=== PATIENT | male | born 1980 | race Caucasian/White ===

== ENCOUNTER 2016-05-31 08:46 | Emergency (ER) | payer MEDICAID ==
[~2016-05-31] VITALS: Ht 182.9 cm; Wt 70.4 kg
[~2016-05-31 08:46] MED LIST: BUPR100T71; OMEP20TA44
[2016-05-31 09:02] VITALS: BP 140/83
== END 2016-05-31 09:59 | disposition home or self-care (01) ==
LOC: ER 08:46
DX: H10.33 Unspecified acute conjunctivitis, bilateral (principal); Z88.6 Allergy status to analgesic agent; Z79.899 Other long term (current) drug therapy; F17.210 Nicotine dependence, cigarettes, uncomplicated; F12.10 Cannabis abuse, uncomplicated

== ENCOUNTER 2016-06-01 11:04 | Emergency (ER) | payer MEDICAID ==
[~2016-06-01] VITALS: Ht 182.9 cm; Wt 70.3 kg
[2016-06-01 11:19] VITALS: BP 146/86
== END 2016-06-01 11:46 | disposition home or self-care (01) ==
LOC: ER 11:07
DX: H10.31 Unspecified acute conjunctivitis, right eye (principal); F17.210 Nicotine dependence, cigarettes, uncomplicated; Z88.6 Allergy status to analgesic agent; F12.10 Cannabis abuse, uncomplicated

== ENCOUNTER 2016-06-07 10:50 | Emergency (ER) | payer MEDICAID ==
[~2016-06-07] VITALS: Ht 182.9 cm; Wt 70.3 kg
[2016-06-07 11:55] VITALS: BP 145/78
[2016-06-07] MEDS ORDERED: LIDOCAINE 1% HCL (LOCAL ANESTH.) INJ 20ML MDV IJ ONE (12:30)
== END 2016-06-07 12:32 | disposition home or self-care (01) ==
LOC: ER 10:50
DX: S61.012A Laceration without foreign body of left thumb without damage to nail, initial encounter (principal); F17.210 Nicotine dependence, cigarettes, uncomplicated; F12.10 Cannabis abuse, uncomplicated; Z88.6 Allergy status to analgesic agent; X58.XXXA Exposure to other specified factors, initial encounter; Y93.89 Activity, other specified; Y99.8 Other external cause status; Y92.89 Other specified places as the place of occurrence of the external cause
CPT/HCPCS: 12001; 99283; J2001

== ENCOUNTER 2018-05-28 13:53 | Emergency (ER) | payer MEDICAID ==
[~2018-05-28] VITALS: Ht 182.9 cm; Wt 74.8 kg
[2018-05-28 14:23] VITALS: BP 139/82
== END 2018-05-28 15:43 | disposition home or self-care (01) ==
LOC: ER 13:56
DX: J20.9 Acute bronchitis, unspecified (principal); F17.210 Nicotine dependence, cigarettes, uncomplicated; F12.10 Cannabis abuse, uncomplicated
CPT/HCPCS: 71046; 81002

== ENCOUNTER 2019-07-01 00:20 | Emergency (ER) | payer MEDICAID ==
[~2019-07-01] VITALS: Ht 182.9 cm; Wt 72.6 kg
[2019-07-01 01:28] LABS: Basophils # (auto) 0.1 10 ^3/uL (0-0.2); Basophils % (auto) 0.8 % (0.0-2.0); Eosinophils # (auto) 0.1 10 ^3/uL (0-0.8); Eosinophils % (auto) 0.9 % (0.0-7.0); Hematocrit 44.4 % (41.0-53.0); Hemoglobin 15.6 g/dL (13.5-17.5); Lymphocytes # (auto) 1.4 10 ^3/uL (0.4-5.4); Lymphocytes % (auto) 15.1 % (10.0-50.0); Mean Corpuscular Hemoglobin 32.4 pg (28.0-32.0); Mean Corpuscular Hgb Conc. 35.1 g/dL (32.0-36.0); Mean Corpuscular Volume 92.3 fL (80.0-100.0); Neutrophils # (auto) 6.7 10 ^3/uL (1.6-8.6); Neutrophils % (auto) 72.2 % (37.0-80.0); Platelet Count (auto) 336 10^3/uL (140-450); Red Blood Cells 4.82 10^6/uL (4.5-5.90); Red Cell Distribution Width 13.3 % (11.8-14.3); White Blood Cell 9.3 10^3/uL (4.4-10.8)
[2019-07-01] MEDS ORDERED: SODIUM CHLORIDE 0.9% 1,000 ML IV ONE (01:30)
[2019-07-01] MEDS ORDERED: KETOROLAC TROMETH 15 mg/ml 1ML VL IV ONE (01:30)
[2019-07-01 01:43] LABS: Urine Bacteria NONE SEEN /hpf (None Seen); Urine Blood Negative /uL (Negative); Urine Hyaline Cast FEW /lpf (0 - 2); Urine Mucus FEW (None Seen); Urine Specific Gravity 1.038 (1.001-1.035); Urine WBC 3 /hpf (0 - 3)
[2019-07-01 01:45] LABS: Calcium 9.1 mg/dL (8.5-10.1); Potassium 3.8 mmol/L (3.5-5.1)
[2019-07-01 01:48] LABS: Total Protein 7.6 g/dL (6.4-8.2)
[2019-07-01] MEDS ORDERED: KETOROLAC TROMETH 60MG/2ML VIAL IM ONE (02:00)
[2019-07-01 02:25] VITALS: BP 109/71
== END 2019-07-01 02:55 | disposition home or self-care (01) ==
LOC: ER 00:25
DX: K59.00 Constipation, unspecified (principal); F17.210 Nicotine dependence, cigarettes, uncomplicated; Z87.442 Personal history of urinary calculi; Z88.6 Allergy status to analgesic agent
CPT/HCPCS: 36415; 74176; 80053; 81001; 83690; 85025; 96361; 96374; 99284; J1885

== ENCOUNTER 2019-07-23 06:03 | Emergency (ER) | payer OTHER, MEDICAID ==
[~2019-07-23] VITALS: Ht 182.9 cm; Wt 77.1 kg
[2019-07-23] MEDS ORDERED: SODIUM CHLORIDE 0.9% 1,000 ML IV ONE ×2 (07:00)
[2019-07-23 07:15] LABS: Basophils # (auto) 0 10 ^3/uL (0-0.2); Basophils % (auto) 0.3 % (0.0-2.0); Eosinophils # (auto) 0.1 10 ^3/uL (0-0.8); Eosinophils % (auto) 0.4 % (0.0-7.0); Hematocrit 44.6 % (41.0-53.0); Hemoglobin 15.1 g/dL (13.5-17.5); Lymphocytes # (auto) 0.6 10 ^3/uL (0.4-5.4); Lymphocytes % (auto) 4.9 % (10.0-50.0); Mean Corpuscular Hemoglobin 31.7 pg (28.0-32.0); Mean Corpuscular Hgb Conc. 33.9 g/dL (32.0-36.0); Mean Corpuscular Volume 93.4 fL (80.0-100.0); Monocytes # (auto) 0.9 10 ^3/uL (0-1.3); Monocytes % (auto) 7.3 % (0.0-12.0); Neutrophils # (auto) 11.3 10 ^3/uL (1.6-8.6); Neutrophils % (auto) 87.1 % (37.0-80.0); Platelet Count (auto) 329 10^3/uL (140-450); Red Blood Cells 4.77 10^6/uL (4.5-5.90); Red Cell Distribution Width 13.3 % (11.8-14.3)
[2019-07-23 07:33] LABS: INR 1.03 (0.9-1.15); Partial Thromboplastin Time 26.8 sec (23.64-32.05)
[2019-07-23 07:44] LABS: Alanine Aminotransferase 39 U/L (16-61); Albumin 3.9 g/dL (3.4-5.0); Anion Gap 8 (5-15); Blood Urea Nitrogen 22 mg/dL (7-18); Calcium 8.6 mg/dL (8.5-10.1); Carbon Dioxide 22 mmol/L (21-32); Chloride 109 mmol/L (98-107); Glucose 108 mg/dL (74-106); Potassium 3.9 mmol/L (3.5-5.1); Sodium 139 mmol/L (136-145)
[2019-07-23 07:49] LABS: Alkaline Phosphatase 84 U/L (45-117); Aspartate Aminotransferase 27 U/L (15-37); BUN/Creatinine Ratio 23.2; Bilirubin, Total 0.6 mg/dL (0.2-1.0); GFR African American 114 mL/min; GFR Non-African American 94 mL/min; Total Protein 7.3 g/dL (6.4-8.2)
[2019-07-23 08:25] LABS: Urine Bacteria NONE SEEN /hpf (None Seen); Urine Blood Negative /uL (Negative); Urine Mucus FEW (None Seen); Urine Specific Gravity 1.029 (1.001-1.035); Urine WBC 1 /hpf (0 - 3)
[2019-07-23] MEDS ORDERED: cefTRIAXone 1GM/50ML D5W 50 ML IV ONE (08:30)
[2019-07-23] MEDS ORDERED: ONDANSETRON HCL 4 MG/2 ML VIAL IV ONE (08:30)
[2019-07-23] MEDS ORDERED: MORPHINE SULFATE 4 MG/ML SYR/VIAL IV ONE (08:30)
[2019-07-23 08:39] LABS: Alcohol, Urine < 3.0 mg/dL (0-5); Amphetamine Screen, Urine POSITIVE (NEGATIVE); Barbiturate Scree,Urine NEGATIVE (NEGATIVE); Benzodiazephine Screen, Urine NEGATIVE (NEGATIVE); Cannabinoid Screen, Urine POSITIVE (NEGATIVE); Cocaine Screen, Urine NEGATIVE (NEGATIVE); Opiate Scree,Urine NEGATIVE (NEGATIVE); Phencyclidine Screen, Urine NEGATIVE (NEGATIVE)
[2019-07-23] MEDS ORDERED: TETANUS-DIPTH-ACEL PERTUSSIS 0.5ML SYR Tdap IM ONE (08:45)
[2019-07-23 09:45] VITALS: BP 134/78
== END 2019-07-23 10:17 | disposition home or self-care (01) ==
LOC: ER 06:03 → EDBD 06:03 → ER 10:17
DX: S43.102A Unspecified dislocation of left acromioclavicular joint, initial encounter (principal); J93.83 Other pneumothorax; F17.210 Nicotine dependence, cigarettes, uncomplicated; F12.10 Cannabis abuse, uncomplicated; F15.10 Other stimulant abuse, uncomplicated; Z88.6 Allergy status to analgesic agent; V43.52XA Car driver injured in collision with other type car in traffic accident, initial encounter; Y93.89 Activity, other specified; Y92.89 Other specified places as the place of occurrence of the external cause; Y99.8 Other external cause status
CPT/HCPCS: 36415; 70450; 71045; 71250; 72125; 73030; 74176; 80053; 80307; 81001; 84484; 85025; 85610; 85730; 90471; 90715; 96365; 96375; 99285; J0696; J2270; J2405; J7030

== ENCOUNTER 2021-05-02 14:19 | Emergency (ER) | payer MEDICAID ==
[~2021-05-02] VITALS: Ht 182.9 cm; Wt 72.6 kg
[2021-05-02 14:24] VITALS: BP 127/87
== END 2021-05-02 18:41 | disposition home or self-care (01) ==
LOC: ER 14:19
DX: H57.89 Other specified disorders of eye and adnexa (principal); Z53.21 Procedure and treatment not carried out due to patient leaving prior to being seen by health care provider

== ENCOUNTER 2021-11-15 09:50 | Emergency (ER) | payer MEDICAID ==
[~2021-11-15] VITALS: Ht 182.9 cm; Wt 160.0 kg
[2021-11-15 10:07] VITALS: BP 128/83
[2021-11-15] MEDS ORDERED: SODIUM CHLORIDE 0.9% 1,000 ML IVB ONE (10:15)
[2021-11-15] MEDS ORDERED: KETOROLAC TROMETH 30 MG/ML 1ML VIAL IV ONE (10:15)
[2021-11-15 10:59] LABS: Basophils # (auto) 0 10 ^3/uL (0-0.2); Basophils % (auto) 0.5 % (0.0-2.0); Eosinophils # (auto) 0.1 10 ^3/uL (0-0.8); Eosinophils % (auto) 1.1 % (0.0-7.0); Hematocrit 39.8 % (41.0-53.0); Hemoglobin 13.3 g/dL (13.5-17.5); Lymphocytes # (auto) 1.3 10 ^3/uL (0.4-5.4); Lymphocytes % (auto) 19.7 % (10.0-50.0); Mean Corpuscular Hemoglobin 30.2 pg (28.0-32.0); Mean Corpuscular Hgb Conc. 33.5 g/dL (32.0-36.0); Mean Corpuscular Volume 90.1 fL (80.0-100.0); Monocytes # (auto) 0.8 10 ^3/uL (0-1.3); Monocytes % (auto) 11.6 % (0.0-12.0); Neutrophils # (auto) 4.5 10 ^3/uL (1.6-8.6); Neutrophils % (auto) 67.1 % (37.0-80.0); Red Blood Cells 4.42 10^6/uL (4.5-5.90); Red Cell Distribution Width 13.1 % (11.8-14.3); White Blood Cell 6.7 10^3/uL (4.4-10.8)
[2021-11-15 11:16] LABS: Calcium 9.5 mg/dL (8.5-10.1); Potassium 3.7 mmol/L (3.5-5.1)
[2021-11-15 11:19] LABS: BUN/Creatinine Ratio 20.9; Bilirubin, Total 0.8 mg/dL (0.2-1.0); Total Protein 7.2 g/dL (6.4-8.2)
== END 2021-11-15 12:05 | disposition home or self-care (01) ==
LOC: ER 10:08
DX: R10.84 Generalized abdominal pain (principal); F17.210 Nicotine dependence, cigarettes, uncomplicated; F12.10 Cannabis abuse, uncomplicated; F15.10 Other stimulant abuse, uncomplicated; Z87.442 Personal history of urinary calculi; Z88.6 Allergy status to analgesic agent
CPT/HCPCS: 36415; 74176; 80053; 83690; 85025; 96361; 96374; 99284; J1885; J7030

== ENCOUNTER 2022-07-28 12:33 | Emergency (ER) | payer MEDICAID ==
[~2022-07-28] VITALS: Ht 182.9 cm; Wt 82.0 kg
[2022-07-28 12:42] VITALS: BP 160/89
== END 2022-07-28 13:43 | disposition left against medical advice (07) ==
LOC: ER 12:33
DX: R07.89 Other chest pain (principal); Z53.21 Procedure and treatment not carried out due to patient leaving prior to being seen by health care provider
CPT/HCPCS: 93005

== ENCOUNTER 2022-11-19 19:33 | Emergency (ER) | payer MEDICAID ==
[~2022-11-19] VITALS: Ht 185.4 cm; Wt 72.7 kg
[2022-11-19] MEDS ORDERED: HYDROcodone-ACET 10/325MG TAB PO ONE (22:00)
[2022-11-19] MEDS ORDERED: AMOX500T3 PO (22:02)
[2022-11-19] MEDS ORDERED: HYDR-4798 PO (22:02)
[2022-11-19 22:34] VITALS: BP 95/55; PULSE 64; RESP 18; TEMP 97.9; O2SAT 100
== END 2022-11-19 22:41 | disposition home or self-care (01) ==
LOC: ER 19:33
DX: K02.9 Dental caries, unspecified (principal); F17.210 Nicotine dependence, cigarettes, uncomplicated; F15.90 Other stimulant use, unspecified, uncomplicated; Z88.6 Allergy status to analgesic agent; Z87.442 Personal history of urinary calculi; Z79.899 Other long term (current) drug therapy

== ENCOUNTER 2023-04-02 15:49 | Emergency (ER) | payer MEDICAID ==
[~2023-04-02] VITALS: Ht 182.9 cm; Wt 72.4 kg
[~2023-04-02 15:49] MED LIST changes: +AMOX500T3 PO; +HYDR-4798 PO
[2023-04-02] MEDS ORDERED: AMOX875T4 PO (18:47)
[2023-04-02] MEDS ORDERED: IBUP-1456 PO (18:47)
[2023-04-02 18:52] VITALS: BP 113/64; PULSE 94; RESP 14; TEMP 98; O2SAT 98
== END 2023-04-02 18:47 | disposition home or self-care (01) ==
LOC: ER 15:49
DX: J03.90 Acute tonsillitis, unspecified (principal); F17.210 Nicotine dependence, cigarettes, uncomplicated; F12.10 Cannabis abuse, uncomplicated; F15.10 Other stimulant abuse, uncomplicated; Z87.442 Personal history of urinary calculi

== ENCOUNTER → 2023-10-06 | Emergency (ER) | payer MEDICAID ==
[~2023-10-06] VITALS: Ht 182.9 cm; Wt 70.9 kg
[~2023-10-06] MED LIST changes: +AMOX875T4 PO; +IBUP-1456 PO
[2023-10-06 18:49] VITALS: BP 98/6; PULSE 144; RESP 98; O2SAT 99
== END | disposition left against medical advice (07) ==
LOC: ER 18:02
DX: S50.811A Abrasion of right forearm, initial encounter (principal); Z53.21 Procedure and treatment not carried out due to patient leaving prior to being seen by health care provider; V86.55XA Driver of 3- or 4- wheeled all-terrain vehicle (ATV) injured in nontraffic accident, initial encounter; Y93.89 Activity, other specified; Y92.89 Other specified places as the place of occurrence of the external cause; Y99.8 Other external cause status